=== PATIENT | male | born 1975 | race Caucasian/White ===

== ENCOUNTER 2016-11-19 17:23 | Emergency (ER) | payer BC ==
[2016-11-19 17:32] VITALS: BP 139/94
--- NOTE | 2016-11-19 18:01 | EDM.PDOC ---
ED HPI GENERAL MEDICAL PROBLEM - General Chief Complaint: Abdominal Pain Stated Complaint: GALLBLADDER ISSUES Time Seen by Provider: 11/19/16 17:51 - History of Present Illness INITIAL COMMENTS - FREE TEXT/NARRATIVE: 41-year-old male presents emergency room with abdominal pain. At this time he is not having any abdominal pain. However, he has had on and off upper abdominal pain that radiates into his back mostly on the right side for the last 2-1/2-3 weeks. He has not had any vomiting with this however he still nauseated at times. Patient has a strong family history of gallbladder disease and wonders if this is what is causing this. The patient does not use alcohol. Certain foods especially fatty foods makes this worse. The patient has a history of seizure disorders however he's been off his medication for quite some time. 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 [No Known Home Meds] 04/21/15 [History] Past Medical History Other Musculoskeletal History: rt lower leg fracture with plates Neurological History: Reports: Seizure Other Endocrine/Metabolic History: thyroid surgery for cyst removal Social & Family History - Tobacco Use Smoking Status *Q: Never Smoker - Recreational Drug Use Recreational Drug Use: No ED ROS GENERAL - Review of Systems Review Of Systems: See Below Constitutional: Reports: No Symptoms. Denies: Fever, Chills HEENT: Reports: No Symptoms Respiratory: Reports: No Symptoms Cardiovascular: Reports: No Symptoms GI/Abdominal: Reports: Abdominal Pain, Nausea. Denies: Black Stool, Bloody Stool, Constipation, Diarrhea, Difficulty Swallowing, Vomiting : Reports: No Symptoms ED EXAM, GI/ABD - Physical Exam Exam: See Below Exam Limited By: No Limitations General Appearance: Alert, No Apparent Distress Respiratory/Chest: No Respiratory Distress, Lungs Clear, Normal Breath Sounds Cardiovascular: Regular Rate, Rhythm, No Edema, No Murmur GI/Abdominal: Normal Bowel Sounds, Soft, Other (He has some vague upper abdominal tenderness worse in the epigastric and right upper quadrant area compared to the left no lower quadrant discomfort no rebound or guarding noted) Back Exam: Normal Inspection. No: CVA Tenderness (L), CVA Tenderness (R) Course - Vital Signs Last Recorded V/S: Last Vital Signs Temp 36.7 C 11/19/16 17:29 Pulse 77 11/19/16 17:29 Resp 16 11/19/16 17:29 BP 139/94 H 11/19/16 17:29 Pulse Ox 98 11/19/16 17:29 - Orders/Labs/Meds Labs: Laboratory Tests 11/19/16 11/19/16 Range/Units 18:12 18:12 WBC 9.83 H (4.23-9.07) K/mm3 RBC 5.01 (4.63-6.08) M/mm3 Hgb 14.7 (13.7-17.5) gm/L Hct 43.7 (40.1-51.0) % MCV 87.2 (79.0-92.2) fl MCH 29.3 (25.7-32.2) pg MCHC 33.6 (32.2-35.5) g/dl RDW Std Deviation 40.5 (35.1-43.9) fL Plt Count 297 (163-337) K/mm3 MPV 11.0 (9.4-12.3) fl Neutrophils % (Manual) 61 H (40-60) % Band Neutrophils % 0 (0-10) % Lymphocytes % (Manual) 30 (20-40) % Atypical Lymphs % 0 % Monocytes % (Manual) 7 (2-10) % Eosinophils % (Manual) 2 (0.8-7.0) % Basophils % (Manual) 0 L (0.2-1.2) Platelet Estimate Adequate RBC Morph Comment Normal Sodium 141 (136-145) mEq/L Potassium 4.4 (3.5-5.1) mEq/L Chloride 105 (98-107) mEq/L Carbon Dioxide 28 (21-32) mEq/L Anion Gap 12.4 (5-15) BUN 13 (7-18) mg/dL Creatinine 0.9 (0.7-1.3) mg/dL Est Cr Clr Drug Dosing 128.12 mL/min Estimated GFR (MDRD) > 60 (>60) mL/min BUN/Creatinine Ratio 14.4 (14-18) Glucose 99 (74-106) mg/dL Calcium 8.9 (8.5-10.1) mg/dL Total Bilirubin 0.5 (0.2-1.0) mg/dL Direct Bilirubin 0.10 (0.0-0.2) mg/dl Indirect Bilirubin 0.40 AST 19 (15-37) U/L ALT 30 (16-63) U/L Alkaline Phosphatase 61 (46-116) U/L Total Protein 7.5 (6.4-8.2) g/dl Albumin 3.9 (3.4-5.0) g/dl Globulin 3.6 gm/dL Albumin/Globulin Ratio 1.1 (1-2) Lipase 483 H (73-393) U/L - Re-Assessments/Exams Free Text/Narrative Re-Assessment/Exam: 11/19/16 20:08 Labs reviewed his total bilirubin is not elevated at 0.5 and direct and indirect still pending lipase is slightly elevated at 483 upper end of normal is 392. CBC subtly elevated 61% segs no bands. The patient will get an outpatient gallbladder ultrasound is recommended that he start Pepcid and followup in the clinic. Departure - Departure Time of Disposition: 20:10 Disposition: Home, Self-Care 01 Clinical Impression: Upper abdominal pain - Discharge Information Instructions: Abdominal Pain, Adult Referrals: PCP,None [Primary Care Provider] - Forms: ED Department Discharge Additional Instructions: Return to the emergency room with any worsening problems or any other questions or problems. Followup in the hospital clinic here 2 days after your ultrasound is done. [phone]. Your lipase should be rechecked as we discussed. Start Pepcid or the generic equivalent famotidine 20 mg twice daily and see if this helps.
== END 2016-11-19 20:58 | disposition home or self-care (01) ==
LOC: JD.ED 17:23
DX: R10.11 Right upper quadrant pain (principal); Z98.890 Other specified postprocedural states
CPT/HCPCS: 36415; 80048; 80076; 83690; 85025; 99283; 99284

== ENCOUNTER 2017-09-09 23:18 | Emergency (ER) | payer BC, MEDICAID ==
[2017-09-09 23:28] VITALS: BP 136/98
[2017-09-10] MEDS ORDERED: Naproxen 500 MG Tab PO ONE (00:51)
[2017-09-10] MEDS ORDERED: Acetaminophen/HYDROcodone 325-5 MG Tab PO ONE (00:52)
[2017-09-10] MEDS ORDERED: predniSONE 20 MG Tab PO ONE (00:52)
--- NOTE | 2017-09-10 01:12 | EDM.PDOC ---
ED HPI GENERAL MEDICAL PROBLEM - General Chief Complaint: Upper Extremity Injury/Pain Stated Complaint: SWOLLEN RIGHT WRIST TO ELBOW Time Seen by Provider: 09/09/17 23:33 Source of Information: Reports: Patient, RN Notes Reviewed - History of Present Illness INITIAL COMMENTS - FREE TEXT/NARRATIVE: 42-year-old male comes in with right wrist pain. He onset of pain about 65 or 6 days ago that lasted for a day or 2 right wrist worse with motion. The pain then did go away for a couple of days but then came back again about 2 or 3 days ago. The pain is worse this evening. Continues to be worse with any type of motion. Not aware of any particular injury. He has developed swelling and erythema over the dorsum of the wrist. When asked about the erythema he states he has been "putting some oils on it" help the inflammation and soreness. Right Wrist Pain Score (Numeric/FACES): 6 - Related Data Allergies Allergy/AdvReac Type Severity Reaction Status Date / Time No Known Allergies Allergy Verified 09/09/17 23:25 Home Meds: Home Meds Ibuprofen 600 mg PO ONCALL PRN 09/09/17 [History] Acetaminophen/HYDROcodone [[place] 325-5 MG] 1 tab PO Q6H PRN #10 tablet 09/10/17 [Rx] Naproxen [Naprosyn] 500 mg PO Q12HR #14 tab 09/10/17 [Rx] Past Medical History Other Musculoskeletal History: rt lower leg fracture with plates Neurological History: Reports: Seizure Other Endocrine/Metabolic History: thyroid surgery for cyst removal Social & Family History - Tobacco Use Smoking Status *Q: Never Smoker - Recreational Drug Use Recreational Drug Use: No Review of Systems - Review of Systems Review Of Systems: See Below Constitutional: Denies: Chills, Fever Eyes: Reports: No Symptoms Mouth/Throat: Reports: No Symptoms Respiratory: Denies: Shortness of Breath, Pleuritic Chest Pain Cardiovascular: Denies: Chest Pain GI/Abdominal: Denies: Abdominal Pain Musculoskeletal: Reports: Joint Pain (Right wrist), Joint Swelling (Right wrist) . Denies: Neck Pain, Shoulder Pain Skin: Reports: Erythema (Over dorsal area of right wrist) ED EXAM, GENERAL - Physical Exam Exam: See Below General Appearance: Alert, Mild Distress Eye Exam: Bilateral Eye: PERRL Throat/Mouth: Normal Inspection Head: Atraumatic. No: Facial Swelling Neck: Supple, Full Range of Motion Respiratory/Chest: No Respiratory Distress Extremities: Joint Swelling (There is mild diffuse swelling of the right wrist, is focal tenderness over the mid dorsal aspect of the wrist, mild tenderness radial aspect of wrist. Pain with flexion and extension, pain with finger motion. No visible deformity), Limited Range of Motion (Patient has ability for moderate flexion extension but not full range of motion due to swelling and discomfort) Neurological: No Motor/Sensory Deficits Skin Exam: Erythema (Over the dorsal aspect of wrist and distal forearm) Course - Vital Signs Last Recorded V/S: Last Vital Signs Temp 97.0 F 09/09/17 23:27 Pulse 72 09/09/17 23:27 Resp 16 09/09/17 23:27 BP 136/98 H 09/09/17 23:27 Pulse Ox 99 09/09/17 23:27 - Orders/Labs/Meds Orders: Active Orders 24 hr Category Date Time Status Wrist Comp Min 3V Rt [CR] Stat Exams 09/09/17 23:58 Taken Meds: Medications Discontinued Medications Generic Name Dose Route Start Last Admin Trade Name Brijeshq PRN Reason Stop Dose Admin Hydrocodone Bitart/Acetaminophen 1 tab 09/10/17 00:52 09/10/17 00:57 [place] 325-5 Mg PO 09/10/17 00:53 1 tab ONETIME ONE Administration Naproxen 500 mg 09/10/17 00:51 09/10/17 00:57 Naprosyn PO 09/10/17 00:52 500 mg ONETIME ONE Administration Prednisone 40 mg 09/10/17 00:52 09/10/17 00:57 Prednisone PO 09/10/17 00:53 40 mg ONETIME ONE Administration - Re-Assessments/Exams Free Text/Narrative Re-Assessment/Exam: 09/10/17 03:01 X-rays of the wrist are negative for fracture, this does seem to be inflammatory , probable tendinitis, patient believes the erythema over the top of the dorsal wrist distal forearm is from applying various "oils trying to make it all better ". I do not believe this is a primary cellulitis problem due to the variation of symptoms described. Discharge instructions as documented. Departure - Departure Time of Disposition: 01:06 Disposition: Home, Self-Care 01 Condition: Fair Clinical Impression: Tendinitis - Discharge Information Prescriptions: Naproxen [Naprosyn] 500 mg PO Q12HR #14 tab Acetaminophen/HYDROcodone [[place] 325-5 MG] 1 tab PO Q6H PRN #10 tablet PRN Reason: Pain Instructions: Tendinitis, [id number] Referrals: PCP,None [Primary Care Provider] - Forms: ED Department Discharge Additional Instructions: Rest hand and wrist, Naprosyn 500 mg twice daily, prednisone as prescribed for the next 7 days tapering dosage, Tylenol in addition for mild to moderate discomfort or hydrocodone if needed for more severe pain, did not take Tylenol and hydrocodone at the same time, do not drive or work when taking hydrocodone. Follow-up clinic if not much better within 3-4 days as expected, return to ED as needed if symptoms worsening in any way. Try not to put anything on inflamed skin of wrist unless you do need some type of simple moisturizing lotion such as Lubriderm which would be safe. - My Orders Last 24 Hours: My Active Orders 09/09/17 23:58 Wrist Comp Min 3V Rt [CR] Stat - Assessment/Plan Last 24 Hours: My Active Orders 09/09/17 23:58 Wrist Comp Min 3V Rt [CR] Stat
--- NOTE | 2017-09-10 07:57 | CR ---
Right wrist: Four views of the right wrist were obtained. Comparison: No previous study. Soft tissue swelling is identified. Joint spaces are preserved. No fracture, dislocation or other bony abnormality is seen. Impression: 1. Soft tissue swelling. No bony abnormality is seen on right wrist exam. Diagnostic code #2
== END 2017-09-10 01:22 | disposition home or self-care (01) ==
LOC: JD.ED 23:18
DX: M77.9 Enthesopathy, unspecified (principal)
CPT/HCPCS: 73110; 99283; A9270

== ENCOUNTER 2019-07-03 20:08 | Emergency (ER) | payer OTHER, BC, MEDICAID ==
[2019-07-03 20:16] VITALS: BP 130/74; PULSE 100
[2019-07-03] MEDS ORDERED: Ibuprofen 600 MG Tab PO ONE (20:16)
--- NOTE | 2019-07-03 20:35 | EDM.PDOC ---
ED HPI GENERAL MEDICAL PROBLEM - General Chief Complaint: Lower Extremity Injury/Pain Stated Complaint: HURT LEG Time Seen by Provider: 07/03/19 20:12 Source of Information: Reports: Patient, Family History Limitations: Reports: No Limitations - History of Present Illness INITIAL COMMENTS - FREE TEXT/NARRATIVE: The patient presents with left hip pain after a fall. He was at work and gathering carts and he slipped on the ice and fall and landed on his left hip. This happened earlier today at about 3pm. He did not hit his head or hurt his neck. He has no chest pain or abdominal pain. He could bear weight on his hip but the pain has gotten worse. Onset: Sudden Duration: Hour(s): Location: Reports: Lower Extremity, Left (Hip) Quality: Reports: Sharp Severity: Severe Improves with: Reports: Immobilization Worsens with: Reports: Movement Context: Reports: Trauma (slipped and fell on the ice) Associated Symptoms: Reports: No Other Symptoms Left Hip Pain Score (Numeric/FACES): 7 - Related Data Allergies Allergy/AdvReac Type Severity Reaction Status Date / Time No Known Allergies Allergy Verified 07/03/19 20:16 Home Meds: Home Meds . [No Known Home Meds] 07/03/19 [History] Past Medical History Musculoskeletal History: Reports: Fracture Other Musculoskeletal History: rt lower leg fracture with plates Neurological History: Reports: Seizure Other Endocrine/Metabolic History: thyroid surgery for cyst removal Social & Family History - Tobacco Use Smoking Status *Q: Never Smoker - Recreational Drug Use Recreational Drug Use: No Review of Systems - Review of Systems Review Of Systems: See Below Constitutional: Reports: No Symptoms Eyes: Reports: No Symptoms Ears: Reports: No Symptoms Nose: Reports: No Symptoms Mouth/Throat: Reports: No Symptoms Respiratory: Reports: No Symptoms Cardiovascular: Reports: No Symptoms GI/Abdominal: Reports: No Symptoms Genitourinary: Reports: No Symptoms Musculoskeletal: Reports: Other (Left hip pain) ED EXAM, GENERAL - Physical Exam Exam: See Below Exam Limited By: No Limitations General Appearance: Alert, No Apparent Distress Ears: Normal External Exam Nose: Normal Inspection Head: Atraumatic, Normocephalic Neck: Normal Inspection, Supple, Non-Tender Respiratory/Chest: No Respiratory Distress, Lungs Clear, Normal Breath Sounds Cardiovascular: Regular Rate, Rhythm, No Edema, No Murmur GI/Abdominal: Soft, Non-Tender, No Organomegaly, No Mass Extremities: Other (Mild pain upon palpation to the left hip) Neurological: Alert, Oriented, No Motor/Sensory Deficits Course - Vital Signs Last Recorded V/S: Last Vital Signs Temp 97.9 F 07/03/19 20:12 Pulse 100 07/03/19 20:12 Resp 18 07/03/19 20:12 BP 130/74 07/03/19 20:12 Pulse Ox 99 07/03/19 20:12 - Orders/Labs/Meds Orders: Active Orders 24 hr Category Date Time Status Hip Min 2V or 3V w Pelvis Lt [CR] Stat Exams 07/03/19 20:15 Taken Meds: Medications Discontinued Medications Generic Name Dose Route Start Last Admin Trade Name Dwayne PRN Reason Stop Dose Admin Ibuprofen 600 mg 07/03/19 20:16 07/03/19 20:20 Motrin PO 07/03/19 20:17 600 mg ONETIME ONE Administration - Re-Assessments/Exams Free Text/Narrative Re-Assessment/Exam: 07/03/19 20:34 I ordered motrin 600g by mouth and an x-ray of his pelvis and hip. 07/03/19 21:05 His x-ray looks good. I will give him some crutches and I will discharge him home. Departure - Departure Time of Disposition: 21:10 Disposition: Home, Self-Care 01 Condition: Good Clinical Impression: Fall Qualifiers: Encounter type: initial encounter Qualified Code(s): W19.XXXA - Unspecified fall, initial encounter Contusion of left hip Qualifiers: Encounter type: initial encounter Qualified Code(s): S70.02XA - Contusion of left hip, initial encounter - Discharge Information *PRESCRIPTION DRUG MONITORING PROGRAM REVIEWED*: Not Applicable *COPY OF PRESCRIPTION DRUG MONITORING REPORT IN PATIENT MALCOLM: Not Applicable Referrals: PCP,None [Primary Care Provider] - Forms: ED Department Discharge, ED Return to Work/School Form Additional Instructions: Ice your hip for 15 minutes 3 times per day for 2 days. Take tylenol or motrin for pain. Use the crutches as needed. Please return if you are worse. Sepsis Event Note - Evaluation Sepsis Screening Result: No Definite Risk - Focused Exam Vital Signs: Vital Signs Temp Pulse Resp BP Pulse Ox 07/03/19 20:12 97.9 F 100 18 130/74 99 Date Exam was Performed: 07/03/19 Time Exam was Performed: 21:03 - My Orders Last 24 Hours: My Active Orders 07/03/19 20:15 Hip Min 2V or 3V w Pelvis Lt [CR] Stat - Assessment/Plan Last 24 Hours: My Active Orders 07/03/19 20:15 Hip Min 2V or 3V w Pelvis Lt [CR] Stat
--- NOTE | 2019-07-04 07:23 | CR ---
Pelvis and left hip: AP view of the pelvis is obtained as well as AP and slight frog-leg lateral view of the left hip. Comparison: No prior pelvis or hip exam. Mild joint space narrowing is noted within the right hip. Joint spaces within the left hip is preserved. No fracture, dislocation or other bony abnormality is seen. Sacroiliac joints appear within normal limits. Impression: 1. Slight joint space narrowing within the right hip. 2. AP pelvis and two-view left hip exam are otherwise unremarkable. 3. Nothing acute is identified. Diagnostic code #2 This report was dictated in [place] Standard Time
== END 2019-07-03 21:15 | disposition home or self-care (01) ==
LOC: JD.ED 20:08
DX: S70.02XA Contusion of left hip, initial encounter (principal); W19.XXXA Unspecified fall, initial encounter
CPT/HCPCS: 73502; 99283; A9270; 99282

== ENCOUNTER 2021-01-30 13:12 | Inpatient (IN) | payer BC, MEDICAID ==
[2021-01-30] MEDS ORDERED: Sodium Chloride 0.9% 10 ML Syringe FLUSH PRN (13:45)
[2021-01-30] MEDS ORDERED: Sodium Chloride 0.9% 1,000 ML IV ONE (13:45)
--- NOTE | 2021-01-30 14:02 | EDM.PDOC ---
ED HPI GENERAL MEDICAL PROBLEM - General Chief Complaint: Neurological Problem Stated Complaint: BALANCE ISSUES X 2 DAYS Time Seen by Provider: 01/30/21 13:32 Source of Information: Reports: Patient History Limitations: Reports: No Limitations, Other (ED vital signs reveal a temp of 97, pulse of 120, respiratory rate of 16, blood pressure is not recorded, pulse ox 97% on room air) - History of Present Illness INITIAL COMMENTS - FREE TEXT/NARRATIVE: 45-year-old male presents the emergency department today with complaints of balance issues for the past 3 days. Patient states that he has a history of epilepsy however he is not currently taking any antiseizure medications and does not see a neurologist. He states that he cannot remember his last documented seizure. He states however when he is exposed to the heat for long periods of time or become slightly dehydrated he has issues with his balance that he attributes to the epilepsy. 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 He states that on Wednesday he was outside the entire day and 100+ temperatures. He states towards the end of the day he started having some balance issues and then called in sick to work on Wednesday. He also feels as if his ears were full of wax and that also contributes to his balance issues. He states he used an ear pick on his ears and was able to get a fair amount of wax out of the left ear however could not get anything out of the right ear. He states that it feels full. He states that since Wednesday he has started to feel little better however as soon as he stands up he does feel dizzy. He denies any recent fever, chills, nausea, vomiting, diarrhea or abdominal pain. He denies any headache, cough or shortness of breath or any respiratory type symptoms. Patient states he does not have a primary care provider in the area and does not take any prescription medications. He states he does have tendinitis in his right wrist and has been alternating ibuprofen and aspirin however he is noted that he has had "darker" colored stools. However he denies any misael red blood. Bilateral Hip Pain Score (Numeric/FACES): 2 - Related Data Allergies Allergy/AdvReac Type Severity Reaction Status Date / Time No Known Allergies Allergy Verified 01/30/21 13:31 Home Meds: Home Meds Acetaminophen [Tylenol] 650 mg PO Q4H PRN tablet 01/31/21 [Rx] Pantoprazole [ProTONIX] 40 mg PO DAILY 90 Days #90 tab.cr 01/31/21 [Rx] Past Medical History Musculoskeletal History: Reports: Fracture Other Musculoskeletal History: rt lower leg fracture with plates Neurological History: Reports: Seizure, Other (See Below) Other Neuro History: epilepsy Other Endocrine/Metabolic History: thyroid surgery for cyst removal Social & Family History - Tobacco Use Tobacco Use Status *Q: Never Tobacco User Second Hand Smoke Exposure: No - Recreational Drug Use Recreational Drug Use: No ED ROS GENERAL - Review of Systems Review Of Systems: Comprehensive ROS is negative, except as noted in HPI. ED EXAM, DIZZINESS - Physical Exam Exam: See Below Exam Limited By: No Limitations General Appearance: Alert, WD/WN, No Apparent Distress Nystagmus: No: reproducible Ears: Normal External Exam, Hearing Grossly Normal, Cerumen Impaction (Right ear) Nose: Normal Inspection, Normal Mucosa Throat/Mouth: Normal Inspection, Normal Lips, Normal Voice, No Airway Compromise. No: Normal Teeth (Dental caries) Head Exam: Atraumatic, Normocephalic Vertigo: No: reproducible Neck: Normal Inspection, Supple Respiratory/Chest: No Respiratory Distress, Lungs Clear, Normal Breath Sounds, No Accessory Muscle Use, Chest Non-Tender, Other (Patient does admit to being more short of breath of recent) Cardiovascular: Normal Peripheral Pulses, No Edema, No Murmur, Tachycardia GI/Abdominal: Normal Bowel Sounds, Soft, Non-Tender, No Distention Neurological: Alert, Normal Mood/Affect, CN II-XII Intact, No Motor/Sensory Deficits, Oriented x 3 Back Exam: Normal Inspection Extremities: Normal Inspection, Normal Range of Motion, Non-Tender, No Pedal Edema, Normal Capillary Refill Psychiatric: Normal Affect, Normal Mood Skin Exam: Warm, Dry, Intact, No Rash, Pallor Course - Vital Signs Text/Narrative:: As stated above patient with a history of "balance issues" that started 3 days ago after working in 100+ degree temperatures. Patient states this has gotten somewhat better over the course the past couple of days however he also feels like his right ear is full of wax which is causing him to have balance issues. The patient has been taking ibuprofen alternating with aspirin for tendinitis pain in his right wrist. He states he has noted "darker" stools. Upon assessment, the patient is very pale. His right tympanic membrane is not visualized as his right ear is impacted with wax. Otherwise exam is unremarkable. Neuro exam is completely unremarkable. He only complains of dizziness when going from lying flat in bed to sitting up. I suspect that the patient may have a GI bleed as he is orthostatic and tachycardic and pale and has noted to have dark-colored stools. We will have nursing clean out his right ear. Last Recorded V/S: Last Vital Signs Temp 98.1 F 01/31/21 17:43 Pulse 81 01/31/21 17:43 Resp 18 01/31/21 17:43 BP 128/84 01/31/21 17:43 Pulse Ox 98 01/31/21 17:43 Orthostatic Blood Pressure [ 89/59 Sitting] Orthostatic Blood Pressure [ 120/77 Supine] - Orders/Labs/Meds Labs: Laboratory Tests 01/30/21 01/30/21 01/30/21 Range/Units 13:45 13:45 14:37 WBC 23.36 H (4.23-9.07) K/mm3 RBC 1.51 L (4.63-6.08) M/mm3 Hgb 4.6 L* D (13.7-17.5) gm/dl Hct 15.3 L (40.1-51.0) % MCV 101.3 H D (79.0-92.2) fl MCH 30.5 (25.7-32.2) pg MCHC 30.1 L (32.2-35.5) g/dl RDW Std Deviation 48.9 H (35.1-43.9) fL Plt Count 356 H (163-337) K/mm3 MPV 10.6 (9.4-12.3) fl Neut % (Auto) 73.0 H (34.0-67.9) % Lymph % (Auto) 17.3 L (21.8-53.1) % [place] % (Auto) 5.9 (5.3-12.2) % Eos % (Auto) 0.6 L (0.8-7.0) Baso % (Auto) 0.2 (0.1-1.2) % Neut # (Auto) 17.05 H (1.78-5.38) K/mm3 Lymph # (Auto) 4.04 H (1.32-3.57) K/mm3 [place] # (Auto) 1.37 H (0.30-0.82) K/mm3 Eos # (Auto) 0.15 (0.04-0.54) K/mm3 Baso # (Auto) 0.05 (0.01-0.08) K/mm3 Manual Slide Review Abnormal smear Sodium 141 (136-145) mEq/L Potassium 3.6 (3.5-5.1) mEq/L Chloride 105 (98-107) mEq/L Carbon Dioxide 27 (21-32) mEq/L Anion Gap 12.6 (5-15) BUN 17 (7-18) mg/dL Creatinine 0.9 (0.7-1.3) mg/dL Est Cr Clr Drug Dosing 126.49 mL/min Estimated GFR (MDRD) > 60 (>60) mL/min BUN/Creatinine Ratio 18.9 H (14-18) Glucose 127 H (70-99) mg/dL Calcium 7.6 L (8.5-10.1) mg/dL Phosphorus (2.6-4.7) mg/dL Magnesium 2.2 (1.8-2.4) mg/dL Total Bilirubin 0.3 (0.2-1.0) mg/dL AST 20 (15-37) U/L ALT 25 (16-63) U/L Alkaline Phosphatase 36 L (46-116) U/L Total Protein 6.0 L (6.4-8.2) g/dl Albumin 2.9 L (3.4-5.0) g/dl Globulin 3.1 gm/dL Albumin/Globulin Ratio 0.9 L (1-2) SARS-CoV-2 RNA (JIMMY) Negative (NEGATIVE) Blood Type Gel Antibody Screen Crossmatch 01/30/21 01/30/21 01/31/21 Range/Units 14:46 22:10 04:52 WBC 17.73 H (4.23-9.07) K/mm3 RBC 2.19 L (4.63-6.08) M/mm3 Hgb 6.7 L* D (13.7-17.5) gm/dl Hct 21.2 L (40.1-51.0) % MCV 96.8 H D (79.0-92.2) fl MCH 30.6 (25.7-32.2) pg MCHC 31.6 L (32.2-35.5) g/dl RDW Std Deviation 45.5 H (35.1-43.9) fL Plt Count 284 (163-337) K/mm3 MPV 10.4 (9.4-12.3) fl Neut % (Auto) (34.0-67.9) % Lymph % (Auto) (21.8-53.1) % [place] % (Auto) (5.3-12.2) % Eos % (Auto) (0.8-7.0) Baso % (Auto) (0.1-1.2) % Neut # (Auto) (1.78-5.38) K/mm3 Lymph # (Auto) (1.32-3.57) K/mm3 [place] # (Auto) (0.30-0.82) K/mm3 Eos # (Auto) (0.04-0.54) K/mm3 Baso # (Auto) (0.01-0.08) K/mm3 Manual Slide Review Sodium 143 (136-145) mEq/L Potassium 3.8 (3.5-5.1) mEq/L Chloride 109 H (98-107) mEq/L Carbon Dioxide 25 (21-32) mEq/L Anion Gap 12.8 (5-15) BUN 13 (7-18) mg/dL Creatinine 0.8 (0.7-1.3) mg/dL Est Cr Clr Drug Dosing 142.30 mL/min Estimated GFR (MDRD) > 60 (>60) mL/min BUN/Creatinine Ratio 16.3 (14-18) Glucose 100 H (70-99) mg/dL Calcium 7.4 L (8.5-10.1) mg/dL Phosphorus 3.9 (2.6-4.7) mg/dL Magnesium 2.2 (1.8-2.4) mg/dL Total Bilirubin (0.2-1.0) mg/dL AST (15-37) U/L ALT (16-63) U/L Alkaline Phosphatase (46-116) U/L Total Protein (6.4-8.2) g/dl Albumin (3.4-5.0) g/dl Globulin gm/dL Albumin/Globulin Ratio (1-2) SARS-CoV-2 RNA (JIMMY) (NEGATIVE) Blood Type A POSITIVE Gel Antibody Screen Negative Crossmatch See Detail 01/31/21 01/31/21 Range/Units 04:52 09:05 WBC 15.09 H 15.10 H (4.23-9.07) K/mm3 RBC 2.82 L 2.95 L (4.63-6.08) M/mm3 Hgb 8.6 L D 9.0 L (13.7-17.5) gm/dl Hct 26.9 L 27.9 L (40.1-51.0) % MCV 95.4 H 94.6 H (79.0-92.2) fl MCH 30.5 30.5 (25.7-32.2) pg MCHC 32.0 L 32.3 (32.2-35.5) g/dl RDW Std Deviation 47.3 H 46.8 H (35.1-43.9) fL Plt Count 247 258 (163-337) K/mm3 MPV 10.8 9.9 (9.4-12.3) fl Neut % (Auto) (34.0-67.9) % Lymph % (Auto) (21.8-53.1) % [place] % (Auto) (5.3-12.2) % Eos % (Auto) (0.8-7.0) Baso % (Auto) (0.1-1.2) % Neut # (Auto) (1.78-5.38) K/mm3 Lymph # (Auto) (1.32-3.57) K/mm3 [place] # (Auto) (0.30-0.82) K/mm3 Eos # (Auto) (0.04-0.54) K/mm3 Baso # (Auto) (0.01-0.08) K/mm3 Manual Slide Review Sodium (136-145) mEq/L Potassium (3.5-5.1) mEq/L Chloride (98-107) mEq/L Carbon Dioxide (21-32) mEq/L Anion Gap (5-15) BUN (7-18) mg/dL Creatinine (0.7-1.3) mg/dL Est Cr Clr Drug Dosing mL/min Estimated GFR (MDRD) (>60) mL/min BUN/Creatinine Ratio (14-18) Glucose (70-99) mg/dL Calcium (8.5-10.1) mg/dL Phosphorus (2.6-4.7) mg/dL Magnesium (1.8-2.4) mg/dL Total Bilirubin (0.2-1.0) mg/dL AST (15-37) U/L ALT (16-63) U/L Alkaline Phosphatase (46-116) U/L Total Protein (6.4-8.2) g/dl Albumin (3.4-5.0) g/dl Globulin gm/dL Albumin/Globulin Ratio (1-2) SARS-CoV-2 RNA (JIMMY) (NEGATIVE) Blood Type Gel Antibody Screen Crossmatch Meds: Medications Discontinued Medications Generic Name Dose Route Start Last Admin Trade Name Freq PRN Reason Stop Dose Admin Acetaminophen 650 mg 01/30/21 16:13 Acetaminophen 325 Mg Tab PO Q4H PRN Pain (Mild 1-3)/fever Sodium Chloride 1,000 mls @ 999 mls/hr 01/30/21 13:45 01/30/21 13:56 Normal Saline IV 01/30/21 14:45 999 mls/hr ONETIME ONE Administration Lactated Ringer's 1,000 mls @ 125 mls/hr 01/30/21 16:15 01/31/21 10:31 Ringers, Lactated IV 125 mls/hr ASDIRECTED ANDRÉS Administration Sodium Chloride 250 mls @ 25 mls/hr 01/30/21 16:45 01/30/21 16:00 Normal Saline IV 25 mls/hr ASDIRECTED ANDRÉS Administration Ondansetron HCl 4 mg 01/30/21 16:13 Ondansetron 4 Mg Tab.Dis PO Q6H PRN nausea, able to take PO Pantoprazole Sodium 40 mg 01/30/21 17:00 01/30/21 19:21 Pantoprazole 40 Mg Vial IVPUSH Not Given Q12H ANDRÉS Pantoprazole Sodium 40 mg 01/30/21 18:00 01/31/21 19:46 Pantoprazole 40 Mg Vial IVPUSH Not Given Q12H ANDRÉS Sodium Chloride 10 ml 01/30/21 13:45 01/30/21 13:56 Sodium Chloride 0.9% 10 Ml Syringe FLUSH 10 ml ASDIRECTED PRN Administration Keep Vein Open - Re-Assessments/Exams Free Text/Narrative Re-Assessment/Exam: 01/30/21 14:23 Orthostatic vital signs reveal a supine blood pressure of 120/77, with a pulse rate of 115; sitting the patient's blood pressure dropped to 89/59 and heart rate up to 125; the patient did not tolerate standing for blood pressure 01/30/21 14:49 Hematology reveals a WBC of 23.36, RBC 1.51, hemoglobin 4.6, hematocrit 15.3, MCV 101.3, neutrophil percentage 73.0 Chemistry reveals a sodium of 141, potassium 3.6, carbon dioxide 27, anion gap 12.6, BUN 17, creatinine 0.9, glucose 127, calcium 7.6, AST 20, ALT 25, alk phos 36, total protein 6.0, albumin 2.9 Patient's elevated white count is likely due to the low hemoglobin. I have ordered for the patient to receive 4 units of packed red cells. I did discuss the risks and benefits of a blood transfusion and the patient does agree. I feel this patient does need to be admitted to the hospital. I have called the surgeon on-call, Dr. Virgen, and she states she will be over to see him shortly. 01/30/21 15:54 Dr. Samuels did do a rectal exam on the patient and states that he was occult positive. She is going to admit him to the hospital. Departure - Departure Time of Disposition: 17:00 Disposition: Admitted As Inpatient 68 Condition: Fair Clinical Impression: GI bleeding Qualifiers: GI bleed type/associated pathology: unspecified gastrointestinal hemorrhage type Qualified Code(s): K92.2 - Gastrointestinal hemorrhage, unspecified - Discharge Information Sepsis Event Note (ED) - Evaluation Sepsis Screening Result: No Definite Risk
--- NOTE | 2021-01-30 15:31 | PCM.HP.2 ---
H&P History of Present Illness - General Date of Service: 01/30/21 Source of Information: Patient, Provider History Limitations: Reports: No Limitations - History of Present Illness Initial Comments - Free Text/Narative: The patient is a 45 y/o gentleman who presented to the ED with complaint of dizziness. He originally thought this may be the start of a seizure, and maybe due to the heat. After 2-3 days of rest without improvement, he presented to be seen. He reports taking ibuprofen and aspirin intermittently for one month (unclear on the dose) for tendonitis. He was taking this every 8 hours, and has tried to decrease in last few weeks. He has noted melena for 4-5 days. He also thinks this may be due to epistaxis in the last week. He noted a small amount of hematochezia. He denies any anal pain or constipation. He denies any fever. - Related Data Allergies/Adverse Reactions: Allergies Allergy/AdvReac Type Severity Reaction Status Date / Time No Known Allergies Allergy Verified 01/30/21 13:31 Home Medications: Home Meds . [No Known Home Meds] 07/03/19 [History] Past Medical History Musculoskeletal History: Reports: Fracture Other Musculoskeletal History: rt lower leg fracture with plates Neurological History: Reports: Seizure, Other (See Below) Other Neuro History: epilepsy Other Endocrine/Metabolic History: thyroid surgery for cyst removal Social & Family History - Family History Cardiac: Reports: [place] Neurological: Reports: Seizure Endocrine/Metabolic: Reports: Diabetes, type II Oncologic: Reports: Brain (brother) - Tobacco Use Tobacco Use Status *Q: Never Tobacco User Second Hand Smoke Exposure: No - Recreational Drug Use Recreational Drug Use: No H&P Review of Systems - Review of Systems: Review Of Systems: See Below General: Reports: Weakness, Fatigue HEENT: Reports: Other (epistaxis) Pulmonary: Reports: Shortness of Breath Cardiovascular: Denies: Chest Pain Gastrointestinal: Reports: Hematochezia, Melena Genitourinary: Reports: No Symptoms Musculoskeletal: Reports: No Symptoms Skin: Reports: Pallor Neurological: Reports: Dizziness Hematologic/Lymphatic: Reports: No Symptoms Exam - Exam Exam: See Below - Vital Signs Vital Signs: Last Vital Signs Temp 36.1 C 01/30/21 13:28 Pulse 120 H 01/30/21 13:28 Resp 16 08/19/21 13:28 BP Pulse Ox 97 01/30/21 13:28 Orthostatic Blood Pressure [ 89/59 Sitting] Orthostatic Blood Pressure [ 120/77 Supine] Weight: 94.347 kg - Exam Quality Assessment: Supplemental Oxygen General: Alert, Oriented HEENT: Conjunctiva Clear, EOMI Neck: Supple Lungs: Clear to Auscultation, Normal Respiratory Effort Cardiovascular: Normal S1, Normal S2, Systolic Murmur (on the ) GI/Abdominal Exam: Soft, Non-Tender, No Distention Rectal (Males) Exam: Normal Rectal Tone, Black Stool, Heme + Stool Extremities: Normal Inspection, No Pedal Edema Peripheral Pulses: 2+: Dorsalis Pedis (L), Dorsalis Pedis (R) Skin: Intact, Cool, Other (mildly diaphoretic) Neuro Extensive - Mental Status: Alert, Oriented x3 - Patient Data Lab Results Last 24 hrs: Laboratory Results - last 24 hr 01/30/21 01/30/21 01/30/21 Range/Units 13:45 13:45 14:46 WBC 23.36 H (4.23-9.07) K/mm3 RBC 1.51 L (4.63-6.08) M/mm3 Hgb 4.6 L* D (13.7-17.5) gm/dl Hct 15.3 L (40.1-51.0) % MCV 101.3 H D (79.0-92.2) fl MCH 30.5 (25.7-32.2) pg MCHC 30.1 L (32.2-35.5) g/dl RDW Std Deviation 48.9 H (35.1-43.9) fL Plt Count 356 H (163-337) K/mm3 MPV 10.6 (9.4-12.3) fl Neut % (Auto) 73.0 H (34.0-67.9) % Lymph % (Auto) 17.3 L (21.8-53.1) % [place] % (Auto) 5.9 (5.3-12.2) % Eos % (Auto) 0.6 L (0.8-7.0) Baso % (Auto) 0.2 (0.1-1.2) % Neut # (Auto) 17.05 H (1.78-5.38) K/mm3 Lymph # (Auto) 4.04 H (1.32-3.57) K/mm3 [place] # (Auto) 1.37 H (0.30-0.82) K/mm3 Eos # (Auto) 0.15 (0.04-0.54) K/mm3 Baso # (Auto) 0.05 (0.01-0.08) K/mm3 Manual Slide Review Abnormal smear Sodium 141 (136-145) mEq/L Potassium 3.6 (3.5-5.1) mEq/L Chloride 105 (98-107) mEq/L Carbon Dioxide 27 (21-32) mEq/L Anion Gap 12.6 (5-15) BUN 17 (7-18) mg/dL Creatinine 0.9 (0.7-1.3) mg/dL Est Cr Clr Drug Dosing 126.49 mL/min Estimated GFR (MDRD) > 60 (>60) mL/min BUN/Creatinine Ratio 18.9 H (14-18) Glucose 127 H (70-99) mg/dL Calcium 7.6 L (8.5-10.1) mg/dL Magnesium 2.2 (1.8-2.4) mg/dL Total Bilirubin 0.3 (0.2-1.0) mg/dL AST 20 (15-37) U/L ALT 25 (16-63) U/L Alkaline Phosphatase 36 L (46-116) U/L Total Protein 6.0 L (6.4-8.2) g/dl Albumin 2.9 L (3.4-5.0) g/dl Globulin 3.1 gm/dL Albumin/Globulin Ratio 0.9 L (1-2) Blood Type A POSITIVE Gel Antibody Screen Negative Crossmatch See Detail Result Diagrams: 01/30/21 13:45 01/30/21 13:45 Sepsis Event Note - Evaluation Sepsis Screening Result: No Definite Risk - Focused Exam Vital Signs: Vital Signs Temp Pulse Resp Pulse Ox 01/30/21 13:28 36.1 C 120 H 16 97 *Q Meaningful Use (ADM) - VTE *Q VTE Pharmacological Contraindications *Q: Active Hemorrhage - Problem List (1) GI bleeding SNOMED Code(s): 11815743 ICD Code: K92.2 - GASTROINTESTINAL HEMORRHAGE, UNSPECIFIED Status: Acute Current Visit: Yes Qualifiers: GI bleed type/associated pathology: unspecified gastrointestinal hemorrhage type Qualified Code(s): K92.2 - Gastrointestinal hemorrhage, unspecified Problem List Initiated/Reviewed/Updated: Yes Orders Last 24hrs: Active Orders 24 hr Category Date Time Status Ear Irrigation [RC] ASDIRECTED Care 01/30/21 13:45 Active Orthostatic Vital Signs [RC] ASDIRECTED Care 01/30/21 13:45 Active CORONAVIRUS COVID-19 JIMMY [MOLEC] Stat Lab 01/30/21 14:37 Received PATIENT RETYPE [BBK] Routine Lab 01/30/21 14:55 Ordered RED BLOOD CELLS LP [BBK] Stat Lab 01/30/21 14:46 Results TYPE AND SCREEN [BBK] Stat Lab 01/30/21 14:46 Results Sodium Chloride 0.9% [Saline Flush] Med 01/30/21 13:45 Active 10 ml FLUSH ASDIRECTED PRN Saline Lock Insert [OM.PC] Stat Oth 01/30/21 13:45 Ordered Medication Orders Sodium Chloride (Sodium Chloride 0.9% 10 Ml Syringe) 10 ml FLUSH ASDIRECTED PRN PRN Reason: Keep Vein Open Last Admin: 01/30/21 13:56 Dose: 10 ml Documented by: GUCCI Assessment/Plan Comment:: The patient is a 45 y/o gentleman with GI bleeding - NPO - IVF resuscitation with LR @125mL/hr. Pt had 1L bolus of NS in ED - Pantoprazole IV BID dosing - plan for transfusion of 4U of PRBC - Will check CBC after first 2 U transfusion, then q6H CBC for trending of Hg after completion of transfusions Will monitor status for need of inpatient endoscopy. Mirela Dockery MD General surgery - Mortality Measure Prognosis:: Good
[2021-01-30] MEDS ORDERED: Ondansetron 4 MG Tab.DIS PO PRN (16:13)
[2021-01-30] MEDS ORDERED: Acetaminophen 325 MG Tab PO PRN (16:13)
[2021-01-30] MEDS ORDERED: Sodium Chloride 0.9% 250 ML IV SCH (16:45)
[2021-01-30] MEDS ORDERED: Pantoprazole 40 MG Vial IVPUSH SCH (17:00)
[2021-01-30] MEDS: Pantoprazole 40 MG Vial IVPUSH SCH (18:21)
[2021-01-31] MEDS: Lactated Ringers 1,000 ML IV SCH ×2 (02:36→10:31)
[2021-01-31] MEDS: Pantoprazole 40 MG Vial IVPUSH SCH ×2 (05:40→19:46)
--- NOTE | 2021-01-31 09:05 | PCM.SURGPN ---
- General Info Date of Service: 01/31/21 Admission Diagnosis/Problem: GI bleed not requiring more than 4 units of blood in 24 hours, ICU, or surgery Functional Status: Reports: Urinating, Other (feeling better this am, no bowel movements since admission) - Patient Data Vitals - Most Recent: Last Vital Signs Temp 36.1 C 01/31/21 07:37 Pulse 85 01/31/21 07:37 Resp 16 01/31/21 07:37 BP 128/93 H 01/31/21 07:37 Pulse Ox 97 01/31/21 07:37 Orthostatic Blood Pressure [ 89/59 Sitting] Orthostatic Blood Pressure [ 120/77 Supine] Weight - Most Recent: 95.028 kg I&O - Last 24 Hours: Intake & Output 01/30/21 01/31/21 01/31/21 22:59 06:59 14:59 Intake Total 770 1500 Balance 770 1500 Lab Results Last 24 Hrs: Laboratory Results - last 24 hr 01/30/21 01/30/21 01/30/21 Range/Units 13:45 13:45 14:37 WBC 23.36 H (4.23-9.07) K/mm3 RBC 1.51 L (4.63-6.08) M/mm3 Hgb 4.6 L* D (13.7-17.5) gm/dl Hct 15.3 L (40.1-51.0) % MCV 101.3 H D (79.0-92.2) fl MCH 30.5 (25.7-32.2) pg MCHC 30.1 L (32.2-35.5) g/dl RDW Std Deviation 48.9 H (35.1-43.9) fL Plt Count 356 H (163-337) K/mm3 MPV 10.6 (9.4-12.3) fl Neut % (Auto) 73.0 H (34.0-67.9) % Lymph % (Auto) 17.3 L (21.8-53.1) % [place] % (Auto) 5.9 (5.3-12.2) % Eos % (Auto) 0.6 L (0.8-7.0) Baso % (Auto) 0.2 (0.1-1.2) % Neut # (Auto) 17.05 H (1.78-5.38) K/mm3 Lymph # (Auto) 4.04 H (1.32-3.57) K/mm3 [place] # (Auto) 1.37 H (0.30-0.82) K/mm3 Eos # (Auto) 0.15 (0.04-0.54) K/mm3 Baso # (Auto) 0.05 (0.01-0.08) K/mm3 Manual Slide Review Abnormal smear Sodium 141 (136-145) mEq/L Potassium 3.6 (3.5-5.1) mEq/L Chloride 105 (98-107) mEq/L Carbon Dioxide 27 (21-32) mEq/L Anion Gap 12.6 (5-15) BUN 17 (7-18) mg/dL Creatinine 0.9 (0.7-1.3) mg/dL Est Cr Clr Drug Dosing 126.49 mL/min Estimated GFR (MDRD) > 60 (>60) mL/min BUN/Creatinine Ratio 18.9 H (14-18) Glucose 127 H (70-99) mg/dL Calcium 7.6 L (8.5-10.1) mg/dL Phosphorus (2.6-4.7) mg/dL Magnesium 2.2 (1.8-2.4) mg/dL Total Bilirubin 0.3 (0.2-1.0) mg/dL AST 20 (15-37) U/L ALT 25 (16-63) U/L Alkaline Phosphatase 36 L (46-116) U/L Total Protein 6.0 L (6.4-8.2) g/dl Albumin 2.9 L (3.4-5.0) g/dl Globulin 3.1 gm/dL Albumin/Globulin Ratio 0.9 L (1-2) SARS-CoV-2 RNA (JIMMY) Negative (NEGATIVE) Blood Type Gel Antibody Screen Crossmatch 01/30/21 01/30/21 01/31/21 Range/Units 14:46 22:10 04:52 WBC 17.73 H (4.23-9.07) K/mm3 RBC 2.19 L (4.63-6.08) M/mm3 Hgb 6.7 L* D (13.7-17.5) gm/dl Hct 21.2 L (40.1-51.0) % MCV 96.8 H D (79.0-92.2) fl MCH 30.6 (25.7-32.2) pg MCHC 31.6 L (32.2-35.5) g/dl RDW Std Deviation 45.5 H (35.1-43.9) fL Plt Count 284 (163-337) K/mm3 MPV 10.4 (9.4-12.3) fl Neut % (Auto) (34.0-67.9) % Lymph % (Auto) (21.8-53.1) % [place] % (Auto) (5.3-12.2) % Eos % (Auto) (0.8-7.0) Baso % (Auto) (0.1-1.2) % Neut # (Auto) (1.78-5.38) K/mm3 Lymph # (Auto) (1.32-3.57) K/mm3 [place] # (Auto) (0.30-0.82) K/mm3 Eos # (Auto) (0.04-0.54) K/mm3 Baso # (Auto) (0.01-0.08) K/mm3 Manual Slide Review Sodium 143 (136-145) mEq/L Potassium 3.8 (3.5-5.1) mEq/L Chloride 109 H (98-107) mEq/L Carbon Dioxide 25 (21-32) mEq/L Anion Gap 12.8 (5-15) BUN 13 (7-18) mg/dL Creatinine 0.8 (0.7-1.3) mg/dL Est Cr Clr Drug Dosing 142.30 mL/min Estimated GFR (MDRD) > 60 (>60) mL/min BUN/Creatinine Ratio 16.3 (14-18) Glucose 100 H (70-99) mg/dL Calcium 7.4 L (8.5-10.1) mg/dL Phosphorus 3.9 (2.6-4.7) mg/dL Magnesium 2.2 (1.8-2.4) mg/dL Total Bilirubin (0.2-1.0) mg/dL AST (15-37) U/L ALT (16-63) U/L Alkaline Phosphatase (46-116) U/L Total Protein (6.4-8.2) g/dl Albumin (3.4-5.0) g/dl Globulin gm/dL Albumin/Globulin Ratio (1-2) SARS-CoV-2 RNA (JIMMY) (NEGATIVE) Blood Type A POSITIVE Gel Antibody Screen Negative Crossmatch See Detail 01/31/21 Range/Units 04:52 WBC 15.09 H (4.23-9.07) K/mm3 RBC 2.82 L (4.63-6.08) M/mm3 Hgb 8.6 L D (13.7-17.5) gm/dl Hct 26.9 L (40.1-51.0) % MCV 95.4 H (79.0-92.2) fl MCH 30.5 (25.7-32.2) pg MCHC 32.0 L (32.2-35.5) g/dl RDW Std Deviation 47.3 H (35.1-43.9) fL Plt Count 247 (163-337) K/mm3 MPV 10.8 (9.4-12.3) fl Neut % (Auto) (34.0-67.9) % Lymph % (Auto) (21.8-53.1) % [place] % (Auto) (5.3-12.2) % Eos % (Auto) (0.8-7.0) Baso % (Auto) (0.1-1.2) % Neut # (Auto) (1.78-5.38) K/mm3 Lymph # (Auto) (1.32-3.57) K/mm3 [place] # (Auto) (0.30-0.82) K/mm3 Eos # (Auto) (0.04-0.54) K/mm3 Baso # (Auto) (0.01-0.08) K/mm3 Manual Slide Review Sodium (136-145) mEq/L Potassium (3.5-5.1) mEq/L Chloride (98-107) mEq/L Carbon Dioxide (21-32) mEq/L Anion Gap (5-15) BUN (7-18) mg/dL Creatinine (0.7-1.3) mg/dL Est Cr Clr Drug Dosing mL/min Estimated GFR (MDRD) (>60) mL/min BUN/Creatinine Ratio (14-18) Glucose (70-99) mg/dL Calcium (8.5-10.1) mg/dL Phosphorus (2.6-4.7) mg/dL Magnesium (1.8-2.4) mg/dL Total Bilirubin (0.2-1.0) mg/dL AST (15-37) U/L ALT (16-63) U/L Alkaline Phosphatase (46-116) U/L Total Protein (6.4-8.2) g/dl Albumin (3.4-5.0) g/dl Globulin gm/dL Albumin/Globulin Ratio (1-2) SARS-CoV-2 RNA (JIMMY) (NEGATIVE) Blood Type Gel Antibody Screen Crossmatch Med Orders - Current: Current Medications Acetaminophen (Acetaminophen 325 Mg Tab) 650 mg PO Q4H PRN PRN Reason: Pain (Mild 1-3)/fever Lactated Ringer's (Ringers, Lactated) 1,000 mls @ 125 mls/hr IV ASDIRECTED [facility] Last Admin: 01/31/21 02:36 Dose: 125 mls/hr Documented by: Sodium Chloride (Normal Saline) 250 mls @ 25 mls/hr IV ASDIRECTED [facility] Last Admin: 01/30/21 16:00 Dose: 25 mls/hr Documented by: Ondansetron HCl (Ondansetron 4 Mg Tab.Dis) 4 mg PO Q6H PRN PRN Reason: nausea, able to take PO Pantoprazole Sodium (Pantoprazole 40 Mg Vial) 40 mg IVPUSH Q12H [facility] Last Admin: 01/31/21 05:40 Dose: 40 mg Documented by: Sodium Chloride (Sodium Chloride 0.9% 10 Ml Syringe) 10 ml FLUSH ASDIRECTED PRN PRN Reason: Keep Vein Open Last Admin: 01/30/21 13:56 Dose: 10 ml Documented by: Discontinued Medications Sodium Chloride (Normal Saline) 1,000 mls @ 999 mls/hr IV ONETIME ONE Stop: 01/30/21 14:45 Last Admin: 01/30/21 13:56 Dose: 999 mls/hr Documented by: Pantoprazole Sodium (Pantoprazole 40 Mg Vial) 40 mg IVPUSH Q12H [facility] Last Admin: 01/30/21 19:21 Dose: Not Given Documented by: - Exam Quality Assessment: No: Supplemental Oxygen General: Alert, Oriented HEENT: EOMI Lungs: Normal Respiratory Effort GI/Abdominal Exam: Soft, Non-Tender, No Distention Neurological: Other (improved response times (slow in ED)) Sepsis Event Note - Evaluation Sepsis Screening Result: No Definite Risk - Focused Exam Vital Signs: Vital Signs Temp Pulse Pulse Resp BP BP Pulse Ox 01/31/21 07:37 36.1 C 85 16 128/93 H 97 01/31/21 05:52 36.6 C 84 16 115/77 97 01/31/21 02:35 36.7 C 90 18 114/68 94 L 01/31/21 02:34 36.7 C 85 18 114/68 95 01/31/21 00:52 36.7 C 97 18 109/59 L 97 01/31/21 00:51 36.7 C 94 18 109/59 L 95 01/31/21 00:38 94 115/65 96 01/31/21 00:37 36.7 C 94 16 115/65 96 01/31/21 00:36 36.7 C 97 16 95 01/31/21 00:21 36.7 C 98 96 16 106/68 106/68 95 01/30/21 22:46 36.7 C 106 H 18 119/62 97 01/30/21 22:12 36.7 C 99 18 122/66 99 01/30/21 21:17 36.8 C 101 H 18 119/75 100 01/30/21 21:11 36.8 C 101 H 18 119/75 100 01/30/21 21:10 36.7 C 99 18 122/66 99 - Problem List & Annotations (1) GI bleeding SNOMED Code(s): 65098477 Code(s): K92.2 - GASTROINTESTINAL HEMORRHAGE, UNSPECIFIED Status: Acute Current Visit: Yes Qualifiers: GI bleed type/associated pathology: unspecified gastrointestinal hemorrhage type Qualified Code(s): K92.2 - Gastrointestinal hemorrhage, unspecified - Problem List Review Problem List Initiated/Reviewed/Updated: Yes - My Orders Last 24 Hours: Active Orders 24 hr Category Date Time Status Patient Status [ADT] Routine ADT 01/30/21 16:13 Active Antiembolic Devices [RC] QSHIFT Care 01/30/21 16:22 Active Height and Weight [RC] 06 Care 01/30/21 16:13 Active May Shower [RC] ASDIRECTED Care 01/30/21 16:13 Active Orthostatic Vital Signs [RC] ASDIRECTED Care 01/30/21 13:45 Active Oxygen Therapy [RC] PRN Care 01/30/21 16:13 Active VTE/DVT Education [RC] PER UNIT ROUTINE Care 01/30/21 16:13 Active Vital Signs [RC] Q4HR Care 01/30/21 16:13 Active Nothing per Oral Now Diet [DIET] Diet 01/30/21 Lunch Active BASIC METABOLIC PANEL,BMP [CHEM] AM Lab 02/01/21 05:11 Ordered CBC W/O DIFF,HEMOGRAM [HEME] Q6H Lab 01/31/21 09:00 Ordered CBC W/O DIFF,HEMOGRAM [HEME] Q6H Lab 01/31/21 15:00 Ordered CBC W/O DIFF,HEMOGRAM [HEME] Q6H Lab 02/01/21 03:00 Ordered MAGNESIUM [CHEM] AM Lab 02/01/21 05:11 Ordered PHOSPHORUS [CHEM] AM Lab 02/01/21 05:11 Ordered Acetaminophen [TylenoL] Med 01/30/21 16:13 Active 650 mg PO Q4H PRN Lactated Ringers [Ringers, Lactated] 1,000 ml Med 01/30/21 16:15 Active IV ASDIRECTED Ondansetron [Zofran ODT] Med 01/30/21 16:13 Active 4 mg PO Q6H PRN Pantoprazole [ProTONIX IV] Med 01/30/21 18:00 Active 40 mg IVPUSH Q12H Sodium Chloride 0.9% [Normal Saline] 250 ml Med 01/30/21 16:45 Active IV ASDIRECTED Sodium Chloride 0.9% [Saline Flush] Med 01/30/21 13:45 Active 10 ml FLUSH ASDIRECTED PRN Saline Lock Insert [OM.PC] Stat Oth 01/30/21 13:45 Ordered Sequential Compression Device [OM.PC] Per Unit Routine Oth 01/30/21 16:17 Ordered Transfuse PRBC [Transfuse Red Blood Cells] [COMM] Stat Oth 01/30/21 15:30 Ordered Resuscitation Status Routine Resus Stat 01/30/21 16:13 Ordered Medication Orders Acetaminophen (Acetaminophen 325 Mg Tab) 650 mg PO Q4H PRN PRN Reason: Pain (Mild 1-3)/fever Lactated Ringer's (Ringers, Lactated) 1,000 mls @ 125 mls/hr IV ASDIRECTED [facility] Last Admin: 01/31/21 02:36 Dose: 125 mls/hr Documented by: MILDRED Sodium Chloride (Normal Saline) 250 mls @ 25 mls/hr IV ASDIRECTED [facility] Last Admin: 01/30/21 16:00 Dose: 25 mls/hr Documented by: GUCCI Ondansetron HCl (Ondansetron 4 Mg Tab.Dis) 4 mg PO Q6H PRN PRN Reason: nausea, able to take PO Pantoprazole Sodium (Pantoprazole 40 Mg Vial) 40 mg IVPUSH Q12H [facility] Last Admin: 01/31/21 05:40 Dose: 40 mg Documented by: Admin: 01/30/21 18:21 Dose: 40 mg Documented by: ELIAS Sodium Chloride (Sodium Chloride 0.9% 10 Ml Syringe) 10 ml FLUSH ASDIRECTED PRN PRN Reason: Keep Vein Open Last Admin: 01/30/21 13:56 Dose: 10 ml Documented by: GCUCI - Assessment Assessment (Free Text/Narrative):: 45 y/o male with GI bleed and anemia. Doing well - Plan Plan (Free Text/Narrative):: - continue q6h CBC for monitoring of hemoglobin - will advance diet when Hg stable - plan for outpatient EGD and colonoscopy - transition to PO pantoprazole when pt tolerating diet Mirela Dockery MD General surgery
--- NOTE | 2021-01-31 16:36 | PCM.DCSUM1 ---
Discharge Summary - Hospital Course Free Text/Narrative:: The patient is a 45 y/o gentleman who presented to the ED with dizziness and was found to be profoundly anemic. He also had heme + stool with melena. He was admitted for blood transfusion and monitoring. He was started on IV PPI. He responded appropriately to the blood transfusions with no further bowel movements once hospitalized. He was discharged home on HOD2. Diagnosis: Stroke: No Modified [place] Scale: No Symptoms at All Modified [place] Scale Score: 0 - Discharge Data Discharge Date: 01/31/21 Discharge Disposition: Home, Self-Care 01 Condition: Stable - Referral to Home Health Primary Care Physician: PCP None - Discharge Diagnosis/Problem(s) (1) GI bleeding SNOMED Code(s): 40631367 ICD Code: K92.2 - GASTROINTESTINAL HEMORRHAGE, UNSPECIFIED Status: Acute Qualifiers: GI bleed type/associated pathology: unspecified gastrointestinal hemorrhage type Qualified Code(s): K92.2 - Gastrointestinal hemorrhage, unspecified - Patient Instructions Diet: Usual Diet as Tolerated Activity: As Tolerated Showering/Bathing: May Shower Notify Provider of: Fever, Increased Pain, Nausea and/or Vomiting Other/Special Instructions: Please avoid ibuprofen, aspirin or any other related medications. You may take Tylenol (acetaminophen) for pain as needed. - Discharge Plan *PRESCRIPTION DRUG MONITORING PROGRAM REVIEWED*: Not Applicable *COPY OF PRESCRIPTION DRUG MONITORING REPORT IN PATIENT MALCOLM: Not Applicable Prescriptions/Med Rec: Pantoprazole [ProTONIX] 40 mg PO DAILY 90 Days #90 tab.cr Home Medications: Home Meds Acetaminophen [Tylenol] 650 mg PO Q4H PRN tablet 01/31/21 [Rx] Pantoprazole [ProTONIX] 40 mg PO DAILY 90 Days #90 tab.cr 01/31/21 [Rx] Patient Handouts: Gastrointestinal Bleeding Forms: ED Department Discharge Referrals: Mirela Dockery MD [Physician] - 02/07/21 3:45 pm (please attend the scheduled hospital follow up appointment as listed. ) Marylou Huang NP [Nurse Practitioner] - 02/11/21 11:30 am (This appt. is to Establish care and dishcarge hospital visit, please arrive by 11:30 to check in) - Discharge Summary/Plan Comment DC Time >30 min.: No Total # of Minutes for Discharge Time: 10 - Patient Data Vitals - Most Recent: Last Vital Signs Temp 36.4 C 01/31/21 11:50 Pulse 79 01/31/21 11:50 Resp 16 01/31/21 11:50 BP 123/92 H 01/31/21 11:50 Pulse Ox 98 01/31/21 11:50 Orthostatic Blood Pressure [ 89/59 Sitting] Orthostatic Blood Pressure [ 120/77 Supine] Weight - Most Recent: 95.028 kg I&O - Last 24 hours: Intake & Output 01/31/21 01/31/21 01/31/21 06:59 14:59 22:59 Intake Total 1500 Balance 1500 Lab Results - Last 24 hrs: Laboratory Results - last 24 hr 01/30/21 01/30/21 01/31/21 Range/Units 14:46 22:10 04:52 WBC 17.73 H (4.23-9.07) K/mm3 RBC 2.19 L (4.63-6.08) M/mm3 Hgb 6.7 L* D (13.7-17.5) gm/dl Hct 21.2 L (40.1-51.0) % MCV 96.8 H D (79.0-92.2) fl MCH 30.6 (25.7-32.2) pg MCHC 31.6 L (32.2-35.5) g/dl RDW Std Deviation 45.5 H (35.1-43.9) fL Plt Count 284 (163-337) K/mm3 MPV 10.4 (9.4-12.3) fl Sodium 143 (136-145) mEq/L Potassium 3.8 (3.5-5.1) mEq/L Chloride 109 H (98-107) mEq/L Carbon Dioxide 25 (21-32) mEq/L Anion Gap 12.8 (5-15) BUN 13 (7-18) mg/dL Creatinine 0.8 (0.7-1.3) mg/dL Est Cr Clr Drug Dosing 142.30 mL/min Estimated GFR (MDRD) > 60 (>60) mL/min BUN/Creatinine Ratio 16.3 (14-18) Glucose 100 H (70-99) mg/dL Calcium 7.4 L (8.5-10.1) mg/dL Phosphorus 3.9 (2.6-4.7) mg/dL Magnesium 2.2 (1.8-2.4) mg/dL Blood Type A POSITIVE Gel Antibody Screen Negative Crossmatch See Detail 01/31/21 01/31/21 01/31/21 Range/Units 04:52 09:05 15:03 WBC 15.09 H 15.10 H 12.66 H (4.23-9.07) K/mm3 RBC 2.82 L 2.95 L 3.00 L (4.63-6.08) M/mm3 Hgb 8.6 L D 9.0 L 9.2 L (13.7-17.5) gm/dl Hct 26.9 L 27.9 L 28.4 L (40.1-51.0) % MCV 95.4 H 94.6 H 94.7 H (79.0-92.2) fl MCH 30.5 30.5 30.7 (25.7-32.2) pg MCHC 32.0 L 32.3 32.4 (32.2-35.5) g/dl RDW Std Deviation 47.3 H 46.8 H 47.7 H (35.1-43.9) fL Plt Count 247 258 260 (163-337) K/mm3 MPV 10.8 9.9 10.2 (9.4-12.3) fl Sodium (136-145) mEq/L Potassium (3.5-5.1) mEq/L Chloride (98-107) mEq/L Carbon Dioxide (21-32) mEq/L Anion Gap (5-15) BUN (7-18) mg/dL Creatinine (0.7-1.3) mg/dL Est Cr Clr Drug Dosing mL/min Estimated GFR (MDRD) (>60) mL/min BUN/Creatinine Ratio (14-18) Glucose (70-99) mg/dL Calcium (8.5-10.1) mg/dL Phosphorus (2.6-4.7) mg/dL Magnesium (1.8-2.4) mg/dL Blood Type Gel Antibody Screen Crossmatch Med Orders - Current: Current Medications Acetaminophen (Acetaminophen 325 Mg Tab) 650 mg PO Q4H PRN PRN Reason: Pain (Mild 1-3)/fever Lactated Ringer's (Ringers, Lactated) 1,000 mls @ 125 mls/hr IV [facility]IRECTED [facility] Last Admin: 01/31/21 10:31 Dose: 125 mls/hr Documented by: Ondansetron HCl (Ondansetron 4 Mg Tab.Dis) 4 mg PO Q6H PRN PRN Reason: nausea, able to take PO Pantoprazole Sodium (Pantoprazole 40 Mg Vial) 40 mg IVPUSH Q12H [facility] Last Admin: 01/31/21 05:40 Dose: 40 mg Documented by: Sodium Chloride (Sodium Chloride 0.9% 10 Ml Syringe) 10 ml FLUSH ASDIRECTED PRN PRN Reason: Keep Vein Open Last Admin: 01/30/21 13:56 Dose: 10 ml Documented by: Discontinued Medications Sodium Chloride (Normal Saline) 1,000 mls @ 999 mls/hr IV ONETIME ONE Stop: 01/30/21 14:45 Last Admin: 01/30/21 13:56 Dose: 999 mls/hr Documented by: Sodium Chloride (Normal Saline) 250 mls @ 25 mls/hr IV [facility]IRECTED [facility] Last Admin: 01/30/21 16:00 Dose: 25 mls/hr Documented by: Pantoprazole Sodium (Pantoprazole 40 Mg Vial) 40 mg IVPUSH Q12H [facility] Last Admin: 01/30/21 19:21 Dose: Not Given Documented by: *Q Meaningful Use (DIS) - VTE *Q VTE Pharmacological Contraindications *Q: Active Hemorrhage
[2021-01-31 19:46] VITALS: BP 128/84; PULSE 81
== END 2021-01-31 18:15 | disposition home or self-care (01) | DRG 253 ==
LOC: JD.ED 13:12 → JD.MS 16:13 → OBSVTOIN 01-31 14:52
PROVIDERS: ADMIT Surgery; ATTEND Surgery
PROC: 30233N1 Transfusion of Nonautologous Red Blood Cells into Peripheral Vein, Percutaneous Approach (ICD-10-PCS; principal; 2021-01-31)
DX: K92.2 Gastrointestinal hemorrhage, unspecified (principal); D64.9 Anemia, unspecified; G40.909 Epilepsy, unspecified, not intractable, without status epilepticus; Z20.822 Contact with and (suspected) exposure to COVID-19
CPT/HCPCS: 36415; 36430; 80048; 80053; 83735; 84100; 85025; 85027; 86850; 86900; 86901; 86922; 96374; 99285; C9113; G0378; J7030; J7050; J7120; P9016; U0002

== ENCOUNTER 2023-12-01 06:40 | Emergency (ER) | payer BC, MEDICAID ==
[2023-12-01] MEDS: Ondansetron 4 MG Tab.DIS PO ONE (07:33)
[2023-12-01] MEDS: Colchicine 0.6 MG Tab PO SCH (07:33)
[2023-12-01] MEDS: Acetaminophen/oxyCODONE 325-5 MG Tab PO ONE (07:33)
[2023-12-01] MEDS: predniSONE 20 MG Tab PO ONE (07:33)
[2023-12-01 07:43] VITALS: BP 129/93; PULSE 90
== END 2023-12-01 07:40 | disposition home or self-care (01) ==
LOC: JD.ED 06:40
DX: M10.9 Gout, unspecified (principal); Z79.899 Other long term (current) drug therapy
CPT/HCPCS: 99283; A9270; J7512